=== PATIENT | male | born 1975 | race Hispanic/Latino ===

== ENCOUNTER 2021-12-30 04:10 | Observation (INO) | payer BC ==
[~2021-12-30] VITALS: Ht 177.8 cm; Wt 95.3 kg
[2021-12-30 05:35] VITALS: BP 154/95
[2021-12-30] MEDS ORDERED: ONDANSETRON 4MG INJ IVP PRN (06:30)
[2021-12-30] MEDS ORDERED: ACETAMINOPHEN 325 MG TAB PO PRN ×4 (06:30→14:30)
[2021-12-30 07:11] LABS: BASOPHILS % (AUTO) 0.5 % (0.0-5.0); EOSINOPHILS % (AUTO) 8.6 % (0.0-8.0); HEMATOCRIT 37.6 % (42-54); LYMPHOCYTES % (AUTO) 27.1 % (21.0-51.0); MEAN CORPUSCULAR HEMOGLOBIN 33.8 pg (27.0-33.0); MEAN CORPUSCULAR HGB CONC 35.6 g/dL (32.0-36.0); MEAN CORPUSCULAR VOLUME 94.9 fL (79-99); MONOCYTES % (AUTO) 8.7 % (3.0-13.0); NEUTROPHILS % (AUTO) 54.9 % (40.0-77.0); PLATELET COUNT (AUTO) 223 K/uL (130-400); RED BLOOD CELL COUNT(AUTO) 3.96 MIL/uL (4.50-6.20); RED CELL DISTRIBUTION WIDTH 11.8 % (11.0-15.5); WHITE BLOOD COUNT (AUTO) 5.7 K/uL (4.8-10.8)
[2021-12-30 08:00] VITALS: BP 140/87
[2021-12-30 08:36] LABS: ALBUMIN 3.7 g/dL (3.5-5.0); CREATININE 0.9 mg/dL (0.5-1.5); POTASSIUM 3.9 mmol/L (3.5-5.1); TOTAL PROTEIN, SERUM 6.9 g/dL (6.0-8.3)
[2021-12-30 12:00] VITALS: BP 161/87
[2021-12-30] MEDS ORDERED: KETOROLAC 30MG VIAL (30MG/ML) IVP PRN (14:00)
[2021-12-30] MEDS ORDERED: DiphenhydrAMINE HCL 50 MG/ML VIAL IV PRN ×2 (14:00→14:30)
[2021-12-30] MEDS ORDERED: PROCHLORPERAZINE 10MG/2ML INJ IV PRN (14:00)
[2021-12-30] MEDS ORDERED: GUAIFENESIN-DM 200/20 MG 10 ML PO PRN (14:30)
[2021-12-30] MEDS ORDERED: LACTULOSE 20 GM/30 ML UDCUP PO PRN (14:30)
[2021-12-30] MEDS ORDERED: ONDANSETRON 4MG INJ IV PRN (14:30)
[2021-12-30] MEDS ORDERED: DIPHENHYDRAMINE HCL 25 MG CAPSULE PO PRN (14:30)
[2021-12-30] MEDS ORDERED: MAG/ALUM/SIMETH 30 ML UDCUP PO PRN (14:30)
[2021-12-30] MEDS ORDERED: NITROGLYCERIN 0.4 MG SL TAB SL PRN (14:30)
[2021-12-30] MEDS ORDERED: GADOTERATE MEGLUMINE 10 MMOL/20 ML VIAL IV ONE (14:49)
[2021-12-30 14:56] LABS: CHOLESTEROL 185 mg/dL (<200); HDL CHOLESTEROL 64 mg/dL (29-71); LDL DIRECT 104 mg/dL (0-99); TRIGLYCERIDES 127 mg/dL (30-200)
[2021-12-30 16:00] VITALS: BP 131/98
[2021-12-30] MEDS: 0.9%NACL 1000ML 1,000 ML IV SCH ×2 (17:28→22:12)
[2021-12-30] MEDS: FAMOTIDINE 20MG TAB PO SCH (20:07)
[2021-12-30] MEDS ORDERED: FAMOTIDINE 20MG VIAL IV PRN (21:00)
[2021-12-30] MEDS ORDERED: ATORVASTATIN 40 MG TABLET PO SCH (21:00)
[2021-12-30 21:14] VITALS: BP 147/78
[2021-12-30 23:55] VITALS: BP 132/64
[2021-12-31 04:00] VITALS: BP 119/84
[2021-12-31 04:45] LABS: BASOPHILS % (AUTO) 0.5 % (0.0-5.0); EOSINOPHILS % (AUTO) 8.1 % (0.0-8.0); HEMATOCRIT 39.7 % (42-54); LYMPHOCYTES % (AUTO) 29.5 % (21.0-51.0); MEAN CORPUSCULAR HEMOGLOBIN 33.3 pg (27.0-33.0); MEAN CORPUSCULAR HGB CONC 34.8 g/dL (32.0-36.0); MEAN CORPUSCULAR VOLUME 95.7 fL (79-99); MONOCYTES % (AUTO) 7.5 % (3.0-13.0); NEUTROPHILS % (AUTO) 54.2 % (40.0-77.0); PLATELET COUNT (AUTO) 200 K/uL (130-400); RED BLOOD CELL COUNT(AUTO) 4.15 MIL/uL (4.50-6.20); RED CELL DISTRIBUTION WIDTH 11.8 % (11.0-15.5); WHITE BLOOD COUNT (AUTO) 5.8 K/uL (4.8-10.8)
[2021-12-31 04:57] LABS: CREATININE 0.9 mg/dL (0.5-1.5); MAGNESIUM 1.9 mg/dL (1.80-2.40); PHOSPHORUS 3.5 mg/dL (2.5-4.9); POTASSIUM 3.6 mmol/L (3.5-5.1)
[2021-12-31] MEDS: 0.9%NACL 1000ML 1,000 ML IV SCH (05:04)
[2021-12-31 08:00] VITALS: BP 155/95
[2021-12-31] MEDS ORDERED: ASPIRIN 81 MG EC TAB PO SCH (09:00)
[2021-12-31] MEDS ORDERED: ENOXAPARIN SODIUM 40 MG/0.4 ML SYRINGE SQ SCH (09:00)
[2021-12-31] MEDS: FAMOTIDINE 20MG TAB PO SCH (09:29)
[2021-12-31 11:20] VITALS: BP 136/84
[2021-12-31] MEDS ORDERED: PROC10TA13 PO (15:01)
[2021-12-31] MEDS ORDERED: DIPH25 PO (15:01)
[2021-12-31] MEDS ORDERED: IBUP-2697 PO (15:01)
[2021-12-31 16:00] VITALS: BP 142/88
== END 2021-12-31 16:17 | disposition home or self-care (01) ==
LOC: 4BH 05:28
PROVIDERS: ADMIT Internal Medicine; ATTEND Internal Medicine
DX: G43.909 Migraine, unspecified, not intractable, without status migrainosus (principal); I10 Essential (primary) hypertension; E86.0 Dehydration; E87.1 Hypo-osmolality and hyponatremia
CPT/HCPCS: 96374; 96361 ×3; 96375; 84443; 82550 ×3; 83874 ×3; 84484 ×3; 80061; 80053; 85025 ×2; 36415 ×2; 70551; 70544; 70549; 96372; 83735; 84100; 80048; 93306; G0378 ×25; J1200; J1885; A9575; J1650